=== PATIENT | male | born 1990 | race Two or more races ===

== ENCOUNTER 2024-08-31 14:28 | Emergency (ER) | payer MEDICAID, SELFPAY ==
--- NOTE | 2024-08-31 14:49 | XR_ITS ---
Examination: PA lateral chest 2 views TECHNIQUE: Upright PA lateral chest 2 views Exam date and time: August 31, 2024 1509 hours INDICATIONS: Coughing today. FINDINGS: Normal heart size No lobar pneumonia No pulmonary edema The osseous structures are intact IMPRESSION: No lobar pneumonia
[2024-08-31 14:50] VITALS: BP 146/92; PULSE 76; RESP 18; TEMP 36.6; O2SAT 99; BMI 28.0
[2024-08-31 15:28] LABS: Basophils % (Auto) 0 % (0-2.5); Eosinophils # (Auto) 0.1 Thou/mm3 (0.0-0.5); Eosinophils % (Auto) 2 % (0-10); Hemoglobin 15.3 g/dL (13.5-16.0); Immature Granulocytes % (Auto) 0 % (0-0); Immature Granulocytes Auto 0.02 Thou/mm3 (0.00-0.00); Lymphocytes # (Auto) 2.6 Thou/mm3 (1.0-4.8); Lymphocytes % (Auto) 38 % (10-50); Mean Corpuscular Hemoglobin 29.7 pg (25.0-35.0); Mean Corpuscular Volume 87 fL (80-100); Monocytes # (Auto) 0.5 Thou/mm3 (0.0-0.8); Monocytes % (Auto) 7 % (0-12); Neutrophils # (Auto) 3.6 Thou/mm3 (1.8-7.7); Neutrophils % (Auto) 52 % (37-80); Nucleated Red Blood Cell % 0 /100 WBC (0); Platelet Count 313 Thou/mm3 (140-440); Red Blood Count 5.15 Miln/mm3 (4.50-5.90); White Blood Count 6.8 Thou/mm3 (3.8-10.6)
[2024-08-31 15:49] LABS: Alanine Aminotransferase 19 U/L (10-49); Albumin, Serum 4.8 gm/dL (3.5-5.0); Albumin/Globulin Ratio 1.5 (1.2-2.2); Alkaline Phosphatase 86 U/L (46-116); Anion Gap 9 (7-16); Aspartate Amino Transferase 22 U/L (0-34); BUN/Creatinine Ratio 12 Ratio (12-20); Bilirubin,Total 0.5 mg/dL (0.3-1.2); Blood Urea Nitrogen 11 mg/dL (9-23); Calcium 9.4 mg/dL (8.3-10.6); Calcium (Corrected) 9.4 mg/dL (8.5-10.1); Chloride 104 mMol/L (98-107); Creatinine (Component) 0.9 mg/dL (0.6-1.3); Estimated Creatinine Clearance 103.7 mL/min (>60); Globulin 3.2 gm/dL (2.3-3.5); Glucose 105 mg/dL (74-106); Lipase 41 U/L (12-53); Osmolality,Calculated 275 (275-295); Sodium 138 mMol/L (136-145); Troponin I < 0.002 ng/mL (0.0-0.045); eGFR > 60 See Note
--- NOTE | 2024-08-31 16:33 | XR_ITS ---
Examination: CT abdomen and pelvis without contrast. Coronal 3-D reconstructions. Sagittal 2-D reconstructions. Date and time of exam:September 19 1640 hrs. Indications: Abdominal pain beginning one week ago CTDI: vol (mGy): 6.21 DLP: (mGycm): 355 Technique: Axial images of the abdomen have been obtained, 3 mm slice thickness Intravenous contrast material has not been administered. Low dose protocols were performed. One or more of the following dose reduction techniques were used; automated exposure control, adjustment of the mA and/or KV according to patient size, use of iterative reconstruction technique. Findings: No focal liver or splenic lesions Contracted gallbladder No pancreatic or adrenal mass. 1 mm nonobstructing left renal calculus axial image 75 No hydronephrosis or ureteral calculi Aorta normal size No bowel obstruction Small fat-containing umbilical hernia No pericecal lung. Change No bowel obstruction No diverticulitis Urinary bladder intact No prostatomegaly Moderate disc narrowing L5-S1 Impression: 1 mm nonobstructing left renal calculus No hydronephrosis or ureteral calculi No bladder mass or bladder calculi
--- NOTE | 2024-08-31 17:54 | EDNOTE_ITS ---
ED Abdominal Pain RME/HPI General Chief Complaint: Abdominal Pain Stated complaint: ABD PAIN Time seen by provider: 08/31/24 14:49 Arrival date/time: 08/31/24 14:28 33-year-old male presents to the emergency department today stating that he has left-sided chest pain worse with movement as well as upper abdominal pain ongoing for greater than 6 months patient reports he did lab work as well as imaging completed in [place]. 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 Limitations: no limitations Related Data Previous Rx's ?Medication ?Instructions ?Recorded famotidine 20 mg tablet (Pepcid) 20 mg PO BID 30 days #60 tabs 08/31/24 ibuprofen 600 mg tablet 600 mg PO Q6H #30 tabs 08/31 omeprazole 20 mg capsule,delayed 20 mg PO QDAY 14 days #14 caps 08/31/24 release Review of Systems Review of Systems Systems Reviewed: All systems reviewed, normal except as documented Constitutional Constitutional: Reports system reviewed and no additional complaints, except as documented, Denies fever(s) and Denies headache(s) Eyes Eyes: Reports system reviewed and no additional complaints, except as documented and Denies blurry vision ENT Ears, Nose, Mouth, and Throat: Reports system reviewed and no additional complaints, except as documented, Denies headache(s), Denies nasal congestion and Denies nasal discharge Cardiovascular Cardiovascular: Reports system reviewed and no additional complaints, except as documented, Denies chest pain and Denies dyspnea Respiratory Respiratory: Reports system reviewed and no additional complaints, except as documented, Denies chest congestion, Denies cough and Denies dyspnea Gastrointestinal Gastrointestinal: Reports system reviewed and no additional complaints, except as documented and Reports abdominal pain Integumentary/Breasts Skin/Breast: Reports system reviewed and no additional complaints, except as documented and Denies rash Neurologic Neurologic: Reports system reviewed and no additional complaints, except as documented, Reports as per HPI and Denies headache(s) Past Medical History Social History SMOKING STATUS: Never smoker ED Exam General Limitations: Present no limitations General appearance: Present alert and in no apparent distress Head Head exam: Present atraumatic, normocephalic and normal inspection Eye Eye exam: Present normal appearance, PERRL and EOMI; Absent conjunctival injection ENT ENT exam: Present normal exam, normal oropharynx and mucous membranes moist Neck Neck exam: Present normal inspection, full ROM and trachea midline Chest Chest inspection: Present normal inspection and symmetric chest wall rise Respiratory Respiratory exam: Present normal lung sounds bilaterally; Absent respiratory distress Cardiovascular Cardiovascular exam: Present regular rate, normal rhythm and normal heart sounds Abdominal Exam Abdominal exam: Present soft and normal bowel sounds; Absent distention, tenderness, guarding, rebound or rigidity Abdominal tenderness: Absent RUQ, RLQ, LUQ, LLQ, epigastrium or suprapubic Extremities Exam Extremities exam: Present normal inspection and full ROM Back Exam Back exam: Present normal inspection and full ROM Neurological Exam Neurological exam: Present alert, oriented X3, CN II-XII intact, normal gait and reflexes normal; Absent motor sensory deficit Psychiatric Psychiatric exam: Present normal affect and normal mood Skin Skin exam: Present warm, dry, intact and normal color; Absent rash Course Quality Measures none Orders Category Date Time Status CT abdomen pelvis wo con Stat Exams 08/31/24 16:33 Completed XR chest 2V Stat Exams 08/31/24 14:49 Completed CBC Stat Lab 08/31/24 14:58 Completed Cocci Serology IgM with reflex to IgG [Cocci Serology, Lab 08/31/24 14:58 Received Unk History] Stat Comprehensive Metabolic Panel Stat Lab 08/31/24 14:58 Completed Lipase Stat Lab 08/31/24 14:58 Completed Troponin I Stat Lab 08/31/24 14:58 Completed Vital Signs Vital signs: Vital Signs Temperature 98 F 08/31/24 14:50 Pulse Rate 76 08/31/24 14:50 Respiratory Rate 18 08/31/24 14:50 Blood Pressure 146/92 H 08/31/24 14:50 Pulse Oximetry (%) 99 08/31/24 14:50 Oxygen Delivery Method Room Air 08/31/24 14:50 O2 saturation 99% room air within normal limits Abdominal Pain MDM MDM Narrative MDM Narrative:: 33-year-old male presents to the emergency department today stating that he has left-sided chest pain worse with movement as well as upper abdominal pain ongoing for greater than 6 months patient reports he did lab work as well as imaging completed in [place]. 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 On exam symptoms consistent with muscular pain Lab work obtained no acute emergent findings noted I did review the patient's previous lab work as well as imaging Lab work was inconclusive for valley fever Chest x-ray per my interpretation showed a left lower lobe pneumonia Patient reports he was treated with antibiotics, Diflucan in [place] Patient reports he been on Diflucan for the last 3 months today patient had a x- ray completed but there is no pneumonia today Patient reports no shortness of breath or chest pain patient is hemodynamically stable patient ankle for care Patient discharged home in no distress to follow-up with primary care doctor in the next 24 to 48 hours and for any worsening symptoms to return to the ER immediately Patient data External records reviewed:: [facility] previous records Clinical information provided by:: patient Social determinants that could affect healthcare access:: none Patient has the following chronic illnesses:: She history How is presenting disease/condition affected by chronic disease/condition?: caused by Evaluation data The following diagnostics were reviewed and interpreted by me:: lab results and radiology exam(s) Lab and/or radiology exams considered but not ordered:: Labs and radiology obtained Interpretation Summary: Reviewed by me Medications / Prescriptions Medications or Prescriptions considered but not ordered:: Given Medication administrations:: Given Consultations Consultation(s) initiated? (list below): No Diagnosis Differential diagnosis abdominal pain: abdominal pain, acute appendicitis, calculus of kidney, pancreatitis and small bowel obstruction Most likely diagnosis given after review of the tests above:: Abdominal pain, chest wall pain Admission Indicated Admission indicated?: not indicated Admission Request Was there a request for admission?: No Disposition Plan Disposition Plan: Discharge Discharge Attestation Discharge Attestation: The patient and all family members were given an opportunity to ask questions and understood the discharge instructions. Discharge instructions specifically effects, indications for sooner follow up or return to the emergency department, and the expected course of current diagnosis. Patient condition: Stable Discharge Plan Plan Patient Disposition: HOME (Self Care) Disposition Comment: Stable Prescriptions/Referrals Prescriptions/Med Rec: New famotidine [Pepcid] 20 mg tablet 20 mg PO BID 30 Days Qty: 60 0RF omeprazole 20 mg capsule,delayed release(DR/EC) 20 mg PO QDAY 14 Days Qty: 14 0RF ibuprofen 600 mg tablet 600 mg PO Q6H Qty: 30 0RF Referrals: No Primary/Family,Physician [Primary Care Provider] - In 1 week Problem List Clinical Impression: Abdominal pain Patient/Caregiver Discharge Instructions Education Materials: Abdominal Pain Additional Instructions: Please follow up with your primary care doctor in the next 24-48hrs for any worsening symptoms return here immediately Your valley fever test should most likely be available tomorrow please call for results Please request H. pylori testing from your PCP Print Language: Yi Stand Alone Forms: Marily Award Info., Work/School Release, Patient Portal Info Letter PA/FOURCHETTE SEWER Supervising Physician PA/FOURCHETTE SEWER Supervising Physician: Dr caro
[2024-09-01 12:31] LABS: Cocci Serology, IgM Positive (Negative)
[2024-09-01 12:33] LABS: Cocid Sro, CF/ID (UCD) NO CHG* See Sep Rpt
== END 2024-08-31 18:02 | disposition home or self-care (01) ==
PROVIDERS: Nurse Practitioner Primary Care; Emergency Provider Emergency Medicine
DX: R10.10 Upper abdominal pain, unspecified (principal); J18.9 Pneumonia, unspecified organism
CPT/HCPCS: 36415; 71046; 74176; 80053; 83690; 84484; 85025; 86635; 99284